=== PATIENT | female | born 1990 | race Caucasian/White ===

== ENCOUNTER 2019-09-17 10:14 | Outpatient (RCR) | payer MEDICAID, SELFPAY | END 2019-10-07 00:01 | LOC: GILAB 10:14 | PROVIDERS: Family Provider Family Medicine; Visit Provider Internal Medicine | DX: K90.9 Intestinal malabsorption, unspecified (principal) | CPT/HCPCS: 96365 ×2; G0463 ×2; J1439 ×2 ==

== ENCOUNTER → 2019-11-20 15:14 | Outpatient (BNVA) | payer MEDICAID, SELFPAY | PROVIDERS: Family Provider Family Medicine; PCP Family Medicine; Visit Provider Obstetrics & Gynecology | DX: R87.612 Low grade squamous intraepithelial lesion on cytologic smear of cervix (LGSIL) (principal); R87.619 Unspecified abnormal cytological findings in specimens from cervix uteri | CPT/HCPCS: 81025 ==

== ENCOUNTER → 2019-11-27 15:21 | Outpatient (BNVA) | payer MEDICAID, SELFPAY | PROVIDERS: Family Provider Family Medicine; PCP Family Medicine; Visit Provider Obstetrics & Gynecology | DX: Z30.9 Encounter for contraceptive management, unspecified (principal); R87.612 Low grade squamous intraepithelial lesion on cytologic smear of cervix (LGSIL) | CPT/HCPCS: 81025 ==

== ENCOUNTER → 2019-11-28 09:16 | Outpatient (BNVA) | payer MEDICAID, SELFPAY | PROVIDERS: Family Provider Family Medicine; PCP Family Medicine; Visit Provider Obstetrics & Gynecology | DX: R87.612 Low grade squamous intraepithelial lesion on cytologic smear of cervix (LGSIL) (principal) | CPT/HCPCS: 88305 ==

== ENCOUNTER → 2020-06-25 08:23 | Outpatient (BNVA) | payer OTHER, SELFPAY | PROVIDERS: PCP Family Medicine; Visit Provider Obstetrics & Gynecology | DX: Z20.828 Contact with and (suspected) exposure to other viral communicable diseases (principal) | CPT/HCPCS: 87635 ==

== ENCOUNTER 2020-06-28 09:00 | Outpatient (CLI) | payer SELFPAY ==
[2020-06-28 10:26] VITALS: BMI 21.4
--- NOTE | 2020-06-28 10:53 | ANES.PREANE2 ---
Pre-Anesthetic Assessment Pre-Anesthetic Assessment: Height/Weight: Height 1.7 m Weight 62.142 kg Preop Diagnosis: Abnormal Pap high-grade lesion, desire long acting reversible contraception Proposed Procedure: Operation Date: 06/30/20 08:00 Proposed Procedures p Cervical Conization 54831 N87.1(Not Applicable) - Rodrick Echevarria MD Familial anesthetic complications: NOne Social: Social History: No alcohol and No tobacco Exam: Pre-Anes Outpt Exam: alert, oriented x 3, clear to auscultation bilaterally and regular rate & rhythm Airway: Cervical ROM: WNL MP: 1 Dentition: Full Anesthetic Plan: ASA status: 1 Anesthesia: General Risk of > 500 ml blood loss (7ml/kg in children): No PFSH Anesthesia PFSH: Family History Mother Diabetes Heart disease Grandmother Heart disease maternal Ovarian cancer maternal great grandmother Family/Other Patient denies medical problems Denies family history of: (hypertension, stroke, hypercholesterolemia, thryoid problems, breast cancer, cervical cancer, uterine cancer, colon cancer, or DVT/PE.) Social History (Updated 06/28/20 @ 08:12 by Milagros Hansen RN) Smoking and tobacco status: never smoked Alcohol intake: never Substance/Drug Use: never Female Reproductive History: Date of last menstrual period: 06/03/20 Data Anesthesia Cardiac Studies: No Data to Display
[2020-06-28 10:54] LABS: Add Urine Microscopic? NO
[2020-06-28 11:04] LABS: Basophils % 0.3 %; Eosinophils % 0.4 %; Hematocrit 40.4 % (37.0-47.0); Hemoglobin 13.4 g/dL (11.5-15.3); Lymphocytes # 2.2 10^3/uL (0.8-4.8); Lymphocytes % 28.4 %; Mean Corpuscular HGB Conc 33.2 g/dL (30.0-36.0); Mean Corpuscular Hemoglobin 30.2 pg (28.0-34.0); Mean Corpuscular Volume 91.2 fL (81-99); Mean Platelet Volume 9.1 fL (7.4-10.4); Monocytes # 0.4 10^3/uL (0.2-0.9); Monocytes % 5.6 %; Neutrophils # 5.13 10^3/uL (1.8-7.7); Neutrophils % 64.8 %; Nucleated Red Blood Cells % 0 %; Platelet Count 198 10^3/cmm (130-400); Red Blood Count 4.43 10^6/uL (4.1-5.3); Red Cell Distribution Width 12.2 % (12.1-15.1); White Blood Count 7.9 10^3/uL (4.0-10.0)
[2020-06-28 11:14] LABS: Anion Gap 12.5 (5-19); Blood Urea Nitrogen 9 mg/dL (6-20); Calcium 8.8 mg/dL (8.5-10.5); Carbon Dioxide 27 mmol/L (22-29); Chloride 103 mmol/L (98-107); Creatinine Clr Calc Pharmacy 164.9307; Glucose 102 mg/dL (65-115); Osmolality Calculated 287 mOsm/kg (285-295); Potassium 3.5 mmol/L (3.5-5.1); Sodium 139 mmol/L (136-145)
[2020-06-28 11:31] LABS: Bilirubin Urine Neg (Negative); Blood Urine Neg (Negative); Glucose Urine UA Norm (Normal); Ketones Urine 1+ (Negative); Leukocyte Esterase Urine Negative (Negative); Nitrate Urine Negative (Negative); Protein Urine Neg (Negative); Urine Appearance Clear (CLEAR); Urine Color Yellow (Yellow); Urobilinogen Urine Norm (Negative)
== END 2020-06-28 09:01 | disposition home or self-care (01) ==
LOC: OPS 05-19 13:04
PROVIDERS: PCP Family Medicine; Visit Provider Obstetrics & Gynecology
DX: N87.1 Moderate cervical dysplasia (principal)
CPT/HCPCS: 80048; 81003; 85025; 86850; 86900

== ENCOUNTER → 2020-07-01 14:38 | Outpatient (BNVA) | payer SELFPAY | PROVIDERS: PCP Family Medicine; Visit Provider Obstetrics & Gynecology | DX: Z32.01 Encounter for pregnancy test, result positive (principal) | CPT/HCPCS: 81025 ==

== ENCOUNTER → 2020-08-03 13:35 | Outpatient (BNVA) | payer SELFPAY | PROVIDERS: PCP Family Medicine; Visit Provider Nurse Practitioner Women's Health | DX: Z34.90 Encounter for supervision of normal pregnancy, unspecified, unspecified trimester (principal) | CPT/HCPCS: 81000 ==

== ENCOUNTER 2020-08-09 20:03 | Emergency (ER) | payer MEDICAID, SELFPAY ==
[2020-08-09 20:08] VITALS: BP 144/96; PULSE 83; RESP 18; TEMP 36.3; O2SAT 98; BMI 21.9
--- NOTE | 2020-08-09 20:50 | US_ITS ---
WS: [id number] ULTRASOUND ABDOMEN LIMITED CLINICAL INFORMATION: right flank pain, 9 weeks IUP COMPARISON: None. FINDINGS: Liver Size: Normal. Craniocaudal length: 15.1 cm. Echogenicity: Normal. Surface nodularity: None. Mass (size and location): None. Bile ducts Intrahepatic ducts: Normal. Common bile duct diameter: 0.3 cm. Gallbladder Normal. Gallstones: None. Gallbladder sludge: None. Gallbladder wall thickening: None. Pericholecystic fluid: None. Sonographic Medley sign: Absent. Pancreas Normal as visualized. Right kidney: Hydronephrosis Hydronephrosis: Mild Size: 10.4 cm x 6.2 cm x 5.9 cm. Abdominal aorta and IVC Visualized portions are normal. Ascites: None. US/US abdomen limited [id number] IMPRESSION: 1. Mild right hydronephrosis. CT renal protocol could be obtained to evaluate for distal obstructing calculus if indicated 2. Liver and gallbladder are normal. 3. No other significant findings.
--- NOTE | 2020-08-09 21:06 | W.ED.FEMALGU ---
HPI - Female Genitourinary General: Chief complaint: Urogenital-Female Stated complaint: 11 week preg/ abd pain Time Seen by Provider: 08/09/20 20:31 History of Present Illness: HPI Narrative: 29-year-old female patient presents to the emergency department with right flank right lower abdominal pain. She reports onset today at 5 PM, sudden onset. She reports nausea. Last menstrual period 06/03/2020, patient approximately 9 weeks, 4 days. She denies vaginal bleeding or vaginal discharge. She reports history of urinary tract infection/pyelonephritis. She denies dysuria. She denies fever or chills. She does report nausea but without vomiting. 3 para 2 living 2 MD elicited complaint: flank pain (rt) Pertinent past history: recurrent UTIs Location of symptoms: RLQ Female Urogenital Radiation: R Flank Quality of pain: cramping Consistency: intermittent Vaginal discharge: none Vaginal bleeding: none Exacerbating factors: none Relieving factors: none Associated symptoms: Reports abdominal pain and nausea; Deny headache(s) Treatment prior to arrival: none Sexual activity: Yes Patient : Yes Possible : at home test positive Date of Last Menstrual Period: 06/03/20 Review of Systems General: Reports: 10 or more systems reviewed and unremarkable except in HPI and below Const: Denies: fever(s), chills or diaphoresis Eyes: Denies: blurry vision or eye redness ENMT: Denies: throat pain, dental pain or disequilibrium Card: Denies: chest pain, palpitations or irregular heart rhythm Resp: Denies: dyspnea, productive cough, non-productive cough or wheezing GI: Reports: abdominal pain and nausea; Denies: vomiting, heartburn or early satiety : Denies: difficulty voiding or dysuria Musc: Denies: neck pain or back pain Skin/Breast: Denies: rash or pruritus Neuro: Denies: headache(s), weakness in extremities or behavioral changes Psych: Denies: anxiety or depression Alfredo/Lymph: Denies: easy bruising [facility] ED PFSH: Medical History (Updated 08/09/20 @ 22:29 by AAMIR Richards) Endometriosis 06/01/2015--> vaginal biopsy--endometriosis noted on pathology. No pertinent past medical history neghx: htn,dm,thyroid,dvt/pe, herpes ---denies partner with herpes Surgical History (Updated 08/03/20 @ 14:12 by Gladys Medina APN, ALEKSANDAR) History of laparoscopy (~2014) operative laparoscopy with upper vaginectomy and excision of rectovaginal endometriosis nodule. Procedure done on 09/20/[address] Manuel Osborn at [facility], rectal nodule removal by Dr. Mitul Vivar. This procedure was done for an area of vaginal endometriosis. Operative report has been reviewed and findings showed a normal uterus with normal tubes and ovaries. Extensive peritoneal endometriosis along the right abdomen. 3.5 cm rectovaginal nodule with deep infiltrating endometriosis. The cul-de-sac was not obliterated. Pathology of all the areas excised were confirmed to be endometriosis. History of local excision of skin lesion (~2004) Previous section Primary low transverse section. Performed by Dr. Gonzalo Rodriguez at [facility] in [place], [place]. Confirmed LTCS with 2 layer closure documented. Status post repeat low transverse section (~09/2019) 09/29/2019- per Dr. Echevarria at [facility] Status post repeat low transverse section (~02/2018) Primary low transverse section. Performed by Dr. Gonzalo Rodriguez at [facility] in [place], [place]. Confirmed LTCS with 2 layer closure documented. 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 Female Reproductive History: Date of last menstrual period: 06/03/20 Physical Exam Const: COMMON NORMALS: no acute distress, patient oriented x3, healthy appearing and alert GENERAL APPEARANCE: comfortable and well hydrated; not combative and not diaphoretic NUTRITIONAL APPEARANCE: thin ORIENTATION/CONSCIOUSNESS: Yes awake, Yes oriented to person, Yes oriented to place and Yes oriented to time HENMT: COMMON NORMALS: normocephalic, atraumatic, Normal external nose present and moist oral mucous membranes HEAD & SCALP: normocephalic and atraumatic NOSE: Normal external nose present Eye: COMMON NORMALS: Equal, round and reactive pupils present and EOMs intact bilaterally GENERAL EYE: appearance normal, both eyes and all related structures PUPIL: Yes Equal, round and reactive pupils present Neck/C-Spine: COMMON NORMALS: full ROM and no lymphadenopathy GENERAL: Yes normal visual inspection and Yes trachea midline CERVICAL SPINE: Yes cervical ROM normal Lymph: LYMPHATIC: no lymphadenopathy noted Chest: COMMONS NORMALS: normal inspection of the chest Resp: COMMON NORMALS: normal respiratory effort and clear to auscultation bilaterally AUSCULTATION: clear to auscultation bilaterally Cardio: COMMON NORMALS: regular rhythm, S1 normal heart sound present, S2 normal heart sound present and Peripheral pulses 2+ throughout RHYTHM: regular rhythm HEART SOUNDS: S1 normal heart sound present and S2 normal heart sound present PERIPHERAL PULSES: Peripheral pulses 2+ throughout GI: COMMON NORMALS: Normal to inspection, nondistended, normoactive bowel sounds present and Soft to palpation INSPECTION: Yes normal to inspection PALPATION: Yes Soft to palpation and Yes Tenderness to palpation present (GI) Details: RLQ : BLADDER/KIDNEY EXAM: Yes CVA tenderness Back/Pelvis: COMMON NORMALS: thoracic and lumbar spine normal to inspection GENERAL BACK: Yes CVA tenderness CVA tenderness: right Extremity: COMMON NORMALS: normal to inspection and capillary refill normal Neuro: COMMON NORMALS: patient oriented x3 and no focal motor deficits SENSORIUM/ORIENTATION: Yes alert, Yes oriented to person, Yes oriented to place and Yes oriented to time Psych: COMMON NORMALS: mental status grossly normal, Normal thought process present and cooperative ACTIVITY/MOTOR BEHAVIOR: Yes appropriate eye contact THOUGHT PROCESS: Normal thought process present Skin: COMMON NORMALS: no rashes or lesions noted and turgor normal GENERAL SKIN EXAM: no rashes or lesions noted and turgor normal Course ED course: 29-year-old female patient presents to the emergency department with right flank pain. Ultrasound revealed intrauterine with heart rate 150s, mild hydronephrosis of the right kidney noted, no stone appreciated but suspected -urinalysis without leukoesterase, nitrites, 1+ bacteria, 0-4 red blood cells noted. Rocephin administered in the ED with 500 cc normal saline, prescription for hydrocodone per Dr. Alvarez with Phenergan provided to the patient along with cefdinir for 10 days. Patient advised to return to the emergency department for nausea vomiting not improved with use of Phenergan, severe pain despite use of hydrocodone, verbalized understanding. She agrees to follow-up with Dr. Bo as an outpatient. Consultations: Consultation #1: Dr Poole, discussed - possible kidney stone - hydrocodone for pain and phenergan for nausea ok for use to control symptoms. Serology and US results discussed - plan to refer to urology, Dr Bo. Time: 22:00 Consultation #2: US Juan discussed, mild hydronephrosis, agrees to see patient in office for follow-up, discussed concern regarding possible kidney stone. Time: 22:15 Vital Signs: Vital signs: Vital Signs Temperature 97.3 F L 08/09/20 20:08 Pulse Rate 88 08/09/20 22:49 Respiratory Rate 18 08/09/20 22:49 Blood Pressure 140/90 08/09/20 22:49 Pulse Oximetry 98 08/09/20 22:49 MDM - Female Lab Data: Labs: Lab Results 08/09/20 08/09/20 08/09/20 Range/Units 21:13 21:13 21:15 WBC 11.0 H (4.0-10.0) 10^3/ uL RBC 4.26 (4.1-5.3) 10^6/u L Hgb 13.0 (11.5-15.3) g/dL Hct 38.6 (37.0-47.0) % MCV 90.6 (81-99) fL MCH 30.5 (28.0-34.0) pg MCHC 33.7 (30.0-36.0) g/dL RDW 12.3 (12.1-15.1) % Plt Count 212 (130-400) 10^3/c mm MPV 9.1 (7.4-10.4) fL Neut % (Auto) 69.9 % Lymph % (Auto) 22.2 % [place] % (Auto) 6.6 % Eos % (Auto) 0.6 % Baso % (Auto) 0.1 % Neut # (Auto) 7.66 (1.8-7.7) 10^3/u L Lymph # (Auto) 2.4 (0.8-4.8) 10^3/u L [place] # (Auto) 0.7 (0.2-0.9) 10^3/u L Eos # (Auto) 0.1 (0.0-0.8) 10^3/u L Baso # (Auto) 0.0 (0.0-0.1) 10^3/u L Nucleated RBC % (a uto) 0 % Nucleated RBCs # 0.0 /100WBC Sodium 132 L (136-145) mmol/L Potassium 3.7 (3.5-5.1) mmol/L Chloride 100 (98-107) mmol/L Carbon Dioxide 22 (22-29) mmol/L Anion Gap 13.7 (5-19) BUN 13 (6-20) mg/dL Creatinine 0.4 L (0.5-0.9) mg/dL GFR Calculation 191.5 H (90-130) mL/min Glucose 96 (65-115) mg/dL Calculated Osmolal ity 274 L (285-295) mOsm/k g Calcium 9.5 (8.5-10.5) mg/dL Total Bilirubin 0.2 (0.15-1.2) mg/dL AST 14 (0-32) U/L ALT 10 (0-33) U/L Alkaline Phosphata se 71 (35-105) IU/L Total Protein 7.0 (6.6-8.7) g/dL Albumin 4.3 (3.5-5.2) g/dL Globulin 2.7 (1.3-4.6) g/dL Ser , Bess i-Qnt 438159.00 mIU/mL Urine Color Yellow (Yellow) Urine Appearance Clear (CLEAR) Urine pH 7.0 (5-7) Ur Specific Gravit y 1.015 (1.005-1.030) Urine Protein Neg (Negative) Urine Glucose (UA) Norm (Normal) Urine Ketones Negative (Negative) Urine Blood 1+ H (Negative) Urine Nitrate Negative (Negative) Urine Bilirubin Neg (Negative) Urine Urobilinogen Norm (Negative) mg/dL Ur Leukocyte Deisi ase Negative (Negative) Urine RBC 5-10 H (0-2) /hpf Urine WBC None (0-5) /hpf Ur Squamous Epith Cells 0-4 H (0-5) /hpf Amorphous Sediment Not Reportable Urine Bacteria Trace (NONE) /hpf Discharge Plan Discharge Patient Disposition: Home Clinical Impression: Renal colic on right side Qualifiers: Weeks of gestation: 9 weeks Qualified Code(s): Z3A.09 - 9 weeks gestation of Condition: Stable Prescriptions: New promethazine 25 mg tablet 25 mg PO Q6H PRN (Reason: nausea) Qty: 14 RF: 0 hydrocodone-acetaminophen 5-325 mg tablet 1 tab PO Q4H PRN (Reason: pain) Qty: 14 RF: 0 cefdinir 300 mg capsule 300 mg PO BID 10 Days Qty: 20 RF: 0 No Action prenat.vits,sergey,[id number] Tablet 1 tab PO DAILY RF: 0 Discharge Orders: Discharge Order (Routine); Ordered 08/09/20 Ordered By: Katelynn Guerrero Referrals: Neha Amaya MD [Primary Care Provider] - Discharge Diet: Usual diet Discharge Activity: Limit activity as instructed Patient Instructions: Renal Colic (ED), Abdominal Pain in (ED) Activity Restrictions/Additional Instructions: Drink plenty of fluids Take antibiotic until all gone, even if feeling better. Social service will contact you with an appointment with Dr. Betzy Duarte urine with every void to intercept possible kidney stone Return to the emergency department if you develop fever, nausea vomiting despite use of Phenergan Avoid fried greasy fatty foods until better Stand Alone Forms: Work/School Release Discharge Date/Time: 08/09/20 22:50 Coding Level of Care Code ED Test Developer for Keilyg Fwd Exam Comprehensive
[2020-08-09] MEDS: ondansetron 4 MG Tablet PO (21:17)
[2020-08-09] MEDS: acetaminophen 500 mg Tablet 1000 MG PO (21:17)
[2020-08-09 21:20] LABS: Basophils % 0.1 %; Eosinophils # 0.1 10^3/uL (0.0-0.8); Eosinophils % 0.6 %; Hematocrit 38.6 % (37.0-47.0); Lymphocytes # 2.4 10^3/uL (0.8-4.8); Lymphocytes % 22.2 %; Mean Corpuscular HGB Conc 33.7 g/dL (30.0-36.0); Mean Corpuscular Hemoglobin 30.5 pg (28.0-34.0); Mean Corpuscular Volume 90.6 fL (81-99); Mean Platelet Volume 9.1 fL (7.4-10.4); Monocytes # 0.7 10^3/uL (0.2-0.9); Monocytes % 6.6 %; Neutrophils # 7.66 10^3/uL (1.8-7.7); Neutrophils % 69.9 %; Nucleated Red Blood Cells % 0 %; Platelet Count 212 10^3/cmm (130-400); Red Blood Count 4.26 10^6/uL (4.1-5.3); Red Cell Distribution Width 12.3 % (12.1-15.1)
[2020-08-09 21:45] LABS: Urine Appearance Clear (CLEAR); Urine Color Yellow (Yellow)
[2020-08-09 21:46] LABS: Add Urine Microscopic? YES; Bacteria Urine TRACE /hpf; Bilirubin Urine Neg (Negative); Blood Urine 1+ (Negative); Glucose Urine UA Norm (Normal); Ketones Urine Negative (Negative); Leukocyte Esterase Urine Negative (Negative); Nitrate Urine Negative (Negative); Protein Urine Neg (Negative); Specific Gravity, Urine 1.015 (1.005-1.030); Squamous Epithelial Cell Urine 0-4 /hpf (0-5); Urobilinogen Urine Norm (Negative)
[2020-08-09 21:47] LABS: Add Urine Culture? No
[2020-08-09 21:53] LABS: Alanine Aminotransferase 10 U/L (0-33); Albumin Level 4.3 g/dL (3.5-5.2); Alkaline Phosphatase 71 IU/L (35-105); Anion Gap 13.7 (5-19); Aspartate Amino Transferase 14 U/L (0-32); Blood Urea Nitrogen 13 mg/dL (6-20); Calcium 9.5 mg/dL (8.5-10.5); Carbon Dioxide 22 mmol/L (22-29); Chloride 100 mmol/L (98-107); Globulin 2.7 g/dL (1.3-4.6); Glomerular Filtration Rate 191.5 mL/min (90-130); Glucose 96 mg/dL (65-115); Osmolality Calculated 274 mOsm/kg (285-295); Potassium 3.7 mmol/L (3.5-5.1); Sodium 132 mmol/L (136-145); Total Bilirubin 0.2 mg/dL (0.15-1.2)
[2020-08-09] MEDS: cefTRIAXone 1,000 MG in sodium chloride 0.9% (plus) 50 ML 100 MG IV (22:18)
[2020-08-09] MEDS: sodium chloride 0.9% 500 ML IV (22:18)
[2020-08-09 22:49] VITALS: BP 140/90; PULSE 88; RESP 18; O2SAT 98
--- NOTE | 2020-08-10 08:49 | DCPLANNER ---
anatomic pathology manager had message to schedule a follow up appointment for patient with Dr. Bo. anatomic pathology manager called the office of Dr. Bo, spoke with Jackie, gave clinic patients information. anatomic pathology manager was told that patients information would be printed and reviewed. Clinic will call patient with appointment information.
--- NOTE | 2020-08-11 10:55 | DCPLANNER ---
Patient has a follow up appointment scheduled for , August 12, 2020 at 11:[address] Bo. Clinic will call patient with appointment information.
--- NOTE | 2020-10-08 12:22 | DCPLANNER ---
Patient had a follow up appointment scheduled for 08.12.[address] Bo - patient did attend appointment.
== END 2020-08-09 22:50 | disposition home or self-care (01) ==
PROVIDERS: Emergency Provider Nurse Practitioner Family; PCP Family Medicine
DX: O26.891 Other specified pregnancy related conditions, first trimester (principal); N23 Unspecified renal colic; Z3A.09 9 weeks gestation of pregnancy
CPT/HCPCS: 12345; 76705; 80053; 81001; 84702; 85025; 96365; 99283; J0696; J7040; Q0162

== ENCOUNTER → 2020-08-12 10:35 | Outpatient (BNVA) | payer MEDICAID, SELFPAY | PROVIDERS: PCP Family Medicine; Visit Provider Urology | DX: N23 Unspecified renal colic (principal); N13.30 Unspecified hydronephrosis | CPT/HCPCS: 81003 ==

== ENCOUNTER → 2020-08-13 13:28 | Outpatient (BNVA) | payer MEDICAID, SELFPAY | PROVIDERS: PCP Family Medicine; Visit Provider Obstetrics & Gynecology | DX: O34.41 Maternal care for other abnormalities of cervix, first trimester (principal); Z3A.10 10 weeks gestation of pregnancy; R87.619 Unspecified abnormal cytological findings in specimens from cervix uteri; Z83.3 Family history of diabetes mellitus | CPT/HCPCS: 80053; 80307; 81000; 83036; 85027; 86592; 86762; 86803; 86850; 86900; 87340; 87806 ==

== ENCOUNTER → 2020-08-24 15:38 | Outpatient (BNVA) | payer MEDICAID, SELFPAY | PROVIDERS: PCP Family Medicine; Visit Provider Nurse Practitioner Family | DX: Z20.828 Contact with and (suspected) exposure to other viral communicable diseases (principal); J06.9 Acute upper respiratory infection, unspecified | CPT/HCPCS: 87635 ==

== ENCOUNTER 2020-08-27 08:21 | Outpatient (CLI) | payer MEDICAID, SELFPAY ==
--- NOTE | 2020-08-27 08:45 | US_ITS ---
WS: [id number] RENAL ULTRASOUND HISTORY: RENAL COLIC COMPARISON: 08/09/2020 TECHNIQUE: 2-D and color Doppler imaging of the kidney submitted. Right kidney: 11.3 cm x 5.7 cm x 5.1 cm. Normal echogenicity with no hydronephrosis or mass. Left kidney: 12.0 cm x 5.7 cm x 5.8 cm. Normal echogenicity with no hydronephrosis or mass. Aorta: Normal. Urinary Bladder: Nondistended. US/US renal BI* [id number] IMPRESSION: Normal renal ultrasound.
== END 2020-08-27 08:22 | disposition home or self-care (01) ==
LOC: RAD 08:23
PROVIDERS: PCP Family Medicine; Visit Provider Urology
DX: N23 Unspecified renal colic (principal)
CPT/HCPCS: 76770; 81003

== ENCOUNTER → 2020-08-29 10:46 | Outpatient (BNVA) | payer MEDICAID, SELFPAY | PROVIDERS: PCP Family Medicine; Visit Provider Nurse Practitioner | DX: N13.30 Unspecified hydronephrosis (principal); N39.0 Urinary tract infection, site not specified | CPT/HCPCS: 81000 ==

== ENCOUNTER → 2020-08-30 09:41 | Outpatient (BNVA) | payer MEDICAID, SELFPAY | PROVIDERS: PCP Family Medicine; Visit Provider Obstetrics & Gynecology | DX: Z34.90 Encounter for supervision of normal pregnancy, unspecified, unspecified trimester (principal) | CPT/HCPCS: 81000; 87625; 88175 ==

== ENCOUNTER → 2020-09-10 13:11 | Outpatient (BNVA) | payer MEDICAID, SELFPAY | PROVIDERS: PCP Family Medicine; Visit Provider Nurse Practitioner Family | DX: N13.30 Unspecified hydronephrosis (principal) | CPT/HCPCS: 81003; 82365 ==

== ENCOUNTER → 2020-09-22 10:44 | Outpatient (BNVA) | payer MEDICAID, SELFPAY | PROVIDERS: PCP Family Medicine; Visit Provider Nurse Practitioner Women's Health | DX: O09.899 Supervision of other high risk pregnancies, unspecified trimester (principal); Z3A.00 Weeks of gestation of pregnancy not specified | CPT/HCPCS: 81000 ==

== ENCOUNTER → 2020-10-22 13:05 | Outpatient (BNVA) | payer MEDICAID, SELFPAY | PROVIDERS: PCP Family Medicine; Visit Provider Obstetrics & Gynecology | DX: Z34.02 Encounter for supervision of normal first pregnancy, second trimester (principal); Z3A.20 20 weeks gestation of pregnancy | CPT/HCPCS: 76805 ==

== ENCOUNTER → 2020-10-28 14:13 | Outpatient (BNVA) | payer BC, MEDICAID, SELFPAY | PROVIDERS: PCP Family Medicine; Visit Provider Obstetrics & Gynecology | DX: R87.612 Low grade squamous intraepithelial lesion on cytologic smear of cervix (LGSIL) (principal) | CPT/HCPCS: 88305 ==

== ENCOUNTER → 2020-11-19 13:27 | Outpatient (BNVA) | payer BC, MEDICAID, SELFPAY | PROVIDERS: PCP Family Medicine; Visit Provider Obstetrics & Gynecology | DX: O09.899 Supervision of other high risk pregnancies, unspecified trimester (principal); O34.219 Maternal care for unspecified type scar from previous cesarean delivery; N87.1 Moderate cervical dysplasia; Z30.2 Encounter for sterilization; N13.30 Unspecified hydronephrosis; N20.9 Urinary calculus, unspecified | CPT/HCPCS: 82950; 84315 ==

== ENCOUNTER → 2020-12-17 13:02 | Outpatient (BNVA) | payer BC, MEDICAID, SELFPAY | PROVIDERS: PCP Family Medicine; Visit Provider Obstetrics & Gynecology | DX: O09.899 Supervision of other high risk pregnancies, unspecified trimester (principal) | CPT/HCPCS: 81000; 85025 ==

== ENCOUNTER 2021-01-28 12:00 | Outpatient (CLI) | payer BC, MEDICAID, SELFPAY ==
[2021-01-28] VITALS (7 sets, daily range): BP systolic 106–113; BP diastolic 63–69; PULSE 71–87; RESP 18; BMI 25.9
[2021-01-28 12:38] LABS: Add Urine Microscopic? NO; Charge for UA Resulting for Rev
[2021-01-28 12:46] LABS: Basophils # 0.1 10^3/uL (0.0-0.1); Basophils % 0.6 %; Eosinophils % 0.3 %; Hematocrit 36.1 % (37.0-47.0); Lymphocytes # 2.3 10^3/uL (0.8-4.8); Lymphocytes % 17.2 %; Mean Corpuscular HGB Conc 33.2 g/dL (30.0-36.0); Mean Corpuscular Hemoglobin 31.2 pg (28.0-34.0); Mean Corpuscular Volume 93.8 fL (81-99); Mean Platelet Volume 8.9 fL (7.4-10.4); Monocytes # 1.1 10^3/uL (0.2-0.9); Monocytes % 8.3 %; Neutrophils # 9.11 10^3/uL (1.8-7.7); Neutrophils % 67.9 %; Nucleated Red Blood Cells % 0 %; Platelet Count 193 10^3/cmm (130-400); Red Blood Count 3.85 10^6/uL (4.1-5.3); Red Cell Distribution Width 12.9 % (12.1-15.1); White Blood Count 13.4 10^3/uL (4.0-10.0)
[2021-01-28 12:58] LABS: Bilirubin Urine Neg (Negative); Blood Urine Neg (Negative); Glucose Urine UA Norm (Normal); Ketones Urine Negative (Negative); Leukocyte Esterase Urine Negative (Negative); Nitrate Urine Negative (Negative); Protein Urine Neg (Negative); Specific Gravity, Urine 1.015 (1.005-1.030); Urine Appearance Clear (CLEAR); Urine Color Yellow (Yellow); Urobilinogen Urine Norm (Negative); pH Urine 5 (5-7)
[2021-01-28 13:09] LABS: Alanine Aminotransferase 9 U/L (0-33); Albumin Level 3.8 g/dL (3.5-5.2); Alkaline Phosphatase 125 IU/L (35-105); Anion Gap 14.8 (5-19); Aspartate Amino Transferase 16 U/L (0-32); Blood Urea Nitrogen 5 mg/dL (6-20); Calcium 8.3 mg/dL (8.5-10.5); Carbon Dioxide 24 mmol/L (22-29); Chloride 101 mmol/L (98-107); Globulin 2.5 g/dL (1.3-4.6); Glomerular Filtration Rate 190.1 mL/min (90-130); Glucose 74 mg/dL (65-115); Osmolality Calculated 278 mOsm/kg (285-295); Potassium 3.8 mmol/L (3.5-5.1); Sodium 136 mmol/L (136-145); Total Bilirubin 0.3 mg/dL (0.15-1.2); Total Protein 6.3 g/dL (6.6-8.7); Uric Acid 3.9 mg/dL (2.4-5.7)
[2021-01-28 13:20] LABS: Slide Review Slide Review Perform
[2021-01-28 13:38] LABS: UPRO/UCREAT Ratio 0.09 mg/mg CR; Urine Creatinine 137 mg/dL (28-217); Urine Protein Random 13 mg/dL
== END 2021-01-28 13:55 | disposition home or self-care (01) ==
LOC: OPOB 12:11 → OBGYN 12:22
PROVIDERS: PCP Family Medicine; Visit Provider Obstetrics & Gynecology
DX: O16.9 Unspecified maternal hypertension, unspecified trimester (principal); Z3A.00 Weeks of gestation of pregnancy not specified; R51.9 Headache, unspecified
CPT/HCPCS: 36415; 59025; 80053; 81003; 82570; 84156; 84550; 85025; 99211

== ENCOUNTER 2021-02-03 11:11 | Emergency (ER) | payer OTHER, SELFPAY ==
[2021-02-03 11:44] VITALS: BP 123/82; PULSE 91; RESP 18; TEMP 36.7; O2SAT 96; BMI 25.9
--- NOTE | 2021-02-03 12:11 | W.ED.GENADLT ---
HPI - General Adult General: Chief complaint: Needlestick/Injury/Exposure Stated complaint: POKED WITH NEEDLSTICK Time Seen by Provider: 02/03/21 11:56 History of Present Illness: HPI narrative: Patient is a 30-year-old female comes to the ED with a needlestick injury. Patient said yesterday morning she was wearing gloves and accidentally nicked herself with use needle on left thumb. She said there was barely any bleeding and she immediately washed and cleaned her hand afterwards. Patient says the used needle did come from a patient that has a history of IV drug use, but does not know any other health history of patient. Patient denies any symptoms. Patient has updated tetanus. Associated symptoms: Deny chest pain, dyspnea, headache(s), nausea, rash, palpitations or vomiting Review of Systems Narrative: Accidental needle stick injury of left thumb Const: Denies: fever(s), chills or fatigue Eyes: Denies: change in vision or eye discomfort ENMT: Denies: throat pain, odynophagia, nasal discharge or nasal congestion Card: Denies: chest pain, palpitations, edema, swelling of feet/ankles, dyspnea on exertion or orthopnea Resp: Denies: dyspnea, productive cough or non-productive cough GI: Denies: abdominal pain, nausea, vomiting, diarrhea, constipation or hematochezia : Denies: flank pain, dysuria or hematuria Musc: Denies: neck pain, back pain or extremity swelling Skin/Breast: Reports: new lesions (Small puncture wound of left thumb.); Denies: rash Neuro: Denies: headache(s), numbness in extremities or weakness in extremities [facility] ED PFSH: Medical History Endometriosis 06/01/2015--> vaginal biopsy--endometriosis noted on pathology. No pertinent past medical history neghx: htn,dm,thyroid,dvt/pe, herpes ---denies partner with herpes Urolithiasis Surgical History History of laparoscopy (~2014) operative laparoscopy with upper vaginectomy and excision of rectovaginal endometriosis nodule. Procedure done on 09/20/[address] Manuel Osborn at [facility], rectal nodule removal by Dr. Mitul Vivar. This procedure was done for an area of vaginal endometriosis. Operative report has been reviewed and findings showed a normal uterus with normal tubes and ovaries. Extensive peritoneal endometriosis along the right abdomen. 3.5 cm rectovaginal nodule with deep infiltrating endometriosis. The cul-de-sac was not obliterated. Pathology of all the areas excised were confirmed to be endometriosis. History of local excision of skin lesion (~2004) Previous section Primary low transverse section. Performed by Dr. Gonzalo Rodriguez at [facility] in [place], [place]. Confirmed LTCS with 2 layer closure documented. Status post repeat low transverse section (~09/2019) 09/29/2019- per Dr. Echevarria at [facility] Status post repeat low transverse section (~02/2018) Primary low transverse section. Performed by Dr. Gonzalo Rodriguez at [facility] in [place], [place]. Confirmed LTCS with 2 layer closure documented. 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 [employer] Female Reproductive History: Date of last menstrual period: 06/03/20 Physical Exam Const: COMMON NORMALS: no acute distress, patient oriented x3, healthy appearing and alert GENERAL APPEARANCE: cooperative and comfortable HENMT: COMMON NORMALS: normocephalic HEAD & SCALP: normocephalic MOUTH: Normal oral and palatal mucosa present THROAT: posterior oropharynx normal and uvula midline Neck/C-Spine: COMMON NORMALS: supple GENERAL: Yes normal visual inspection Resp: COMMON NORMALS: normal respiratory effort, No retractions, No use of accessory muscles and clear to auscultation bilaterally AUSCULTATION: clear to auscultation bilaterally Cardio: COMMON NORMALS: regular rate, regular rhythm, S1 normal heart sound present, S2 normal heart sound present, No gallops present (Cardio), No clicks present (Cardio), No murmurs present (Cardio) and Peripheral pulses 2+ throughout RATE: regular rate RHYTHM: regular rhythm HEART SOUNDS: S1 normal heart sound present and S2 normal heart sound present PERIPHERAL PULSES: Peripheral pulses 2+ throughout GI: COMMON NORMALS: Normal to inspection, nondistended, normoactive bowel sounds present, Soft to palpation, non-tender and no masses PALPATION: Yes Soft to palpation : COMMON NORMALS: Yes no CVA tenderness BLADDER/KIDNEY EXAM: Yes no CVA tenderness Back/Pelvis: COMMON NORMALS: no CVA tenderness Extremity: NARRATIVE EXTREMITY EXAM: Patient has very small and superficial puncture wound to left thumb. No erythema, warmth or drainage seen. No active bleeding. GENERAL: Yes normal exam except as noted Neuro: COMMON NORMALS: patient oriented x3 and moves all extremities SENSORIUM/ORIENTATION: Yes alert Skin: NARRATIVE SKIN EXAM: Patient has very small and superficial puncture wound to left thumb. No erythema, warmth or drainage seen. No active bleeding. GENERAL SKIN EXAM: dry skin Course Vital Signs: Vital signs: Vital Signs Temperature 98.1 F 02/03/21 11:44 Pulse Rate 91 02/03/21 11:44 Respiratory Rate 18 02/03/21 11:44 Blood Pressure 123/82 02/03/21 11:44 Pulse Oximetry 96 02/03/21 11:44 MDM - General Adult MDM Narrative: Medical decision making narrative: Patient is a 30-year-old female comes to the ED with accidental needlestick injury at work. Patient immediately cleaned and bandaged wound after incident. Patient had very small puncture wound to left thumb. No signs of any cellulitis or other significant exam findings. Patient did say that before accidental needle poke she just had drawn blood from a patient with known IV drug use in their history. HIV and hepatitis panel labs performed and pending. Patient has updated tetanus. Patient was discharged and told to contact [facility] to get lab results. I told patient that she can follow-up with her PCP to repeat HIV and hepatitis labs in the next 2 to 4 months. Return to ED precautions given. Worker's Comp. paperwork was completed and signed. Patient understood and agreed with plan. Lab Data: Labs: Lab Results 02/03/21 02/03/21 Range/Units 12:30 12:30 Hepatitis A IgM Ab Non-reactive (Nonreactive) Hep Bs Antigen Non-reactive (Nonreactive) Hep Bs Antibody > 1000.0 H (11.5-1000) Hep B Core Total A b Non-reactive (Nonreactive) Hepatitis C Antibo dy Non-reactive (Nonreactive) HIV 1&2 Ab & HIV 1 Ag Non-reactive (Non-Reactiv) HIV 1&2 Antibody Non-reactive (Non-Reactiv) Discharge Plan Discharge Patient Disposition: Home Clinical Impression: Needlestick injury accident Condition: Stable Prescriptions: No Action prenat.vits,sergey,[id number] Tablet 1 tab PO DAILY RF: 0 promethazine 25 mg tablet 25 mg PO Q6H PRN (Reason: nausea) Qty: 14 RF: 0 Discharge Orders: Discharge ED (Routine); Ordered 02/03/21 Ordered By: Alberto Latham Referrals: Neha Amaya MD [Primary Care Provider] - Discharge Diet: Regular Discharge Activity: Resume usual activity Patient Instructions: Blood/Body Fluid Exposure - Occupational, Needle Stick Injuries (ED), Opioid Safety Activity Restrictions/Additional Instructions: Follow-up with medical provider as directed. Have hepatitis and HIV labs are rechecked in 2 to 4 months. return to the ER or your medical provider if condition worsens. Please read and understand discharge instructions. If any questions, please ask. Coding Level of Care Code ED Auto Body Technician for Bailey Fwd Exam Comprehensive
[2021-02-03 13:27] LABS: Hepatitis A Antibody IgM Non-Reactive (Nonreactive); Hepatitis B Core AB, Total Non-Reactive (Nonreactive); Hepatitis B Surface Antigen Non-Reactive (Nonreactive); Hepatitis C Virus Antibody Non-Reactive (Nonreactive)
[2021-02-03 13:35] LABS: HIV 1 & 2 Antibody Non-Reactive (Non-Reactiv); HIV 1 & 2 Antigen Non-Reactive (Non-Reactiv)
[2021-02-03 14:52] LABS: Hepatitis B Surface AB > 1000.0 (11.5-1000)
== END 2021-02-03 12:30 | disposition home or self-care (01) ==
PROVIDERS: Emergency Provider Physician Assistant; PCP Family Medicine
DX: S61.032A Puncture wound without foreign body of left thumb without damage to nail, initial encounter (principal); W46.1XXA Contact with contaminated hypodermic needle, initial encounter; Y99.0 Civilian activity done for income or pay
CPT/HCPCS: 86705; 86706; 86709; 86803; 87340; 87806; 99282

== ENCOUNTER → 2021-02-11 13:30 | Outpatient (BNVA) | payer BC, SELFPAY | PROVIDERS: PCP Family Medicine; Visit Provider Obstetrics & Gynecology | DX: O09.899 Supervision of other high risk pregnancies, unspecified trimester (principal); Z3A.00 Weeks of gestation of pregnancy not specified | CPT/HCPCS: 81000; 87081 ==

== ENCOUNTER → 2021-02-25 10:39 | Outpatient (BNVA) | payer SELFPAY | PROVIDERS: PCP Family Medicine; Visit Provider Obstetrics & Gynecology | DX: O09.899 Supervision of other high risk pregnancies, unspecified trimester (principal); O34.219 Maternal care for unspecified type scar from previous cesarean delivery; Z3A.00 Weeks of gestation of pregnancy not specified | CPT/HCPCS: 81000 ==

== ENCOUNTER 2021-03-02 20:30 | Inpatient (IN) | payer BC, SELFPAY ==
[2021-03-02] VITALS (9 sets, daily range): BP systolic 101–125; BP diastolic 67–77; PULSE 69–98; RESP 16–20; TEMP 36.2–37; O2SAT 95–98; BMI 26.3
--- NOTE | 2021-03-02 20:35 | PC.NURSE ---
Called placed to Dr. Echevarria and notified of patient arrival, 38.6 prior x 2, SVE of /-3, intact membranes, elizabeth every 6-8 minutes and patient uncomfortable with them, FHTs, and COVID unknown. MD orders to prep patient for and that he is on his way to the hospital for delivery.
--- NOTE | 2021-03-02 20:39 | PC.NURSE ---
This RN called [facility] and notified that was being called for a triage that was a laboring prior , Main OR crew was needed and one manager surgical was needed. supervisor game farm stated she would call the crew in.
--- NOTE | 2021-03-02 20:41 | PC.NURSE ---
Called placed to Haleigh Benjamin CRNA that was called on prior in labor as well as a patient requesting an epidural. Haleigh states that she is on her way and that she will call Dr. Stewart to come in for as well.
--- NOTE | 2021-03-02 20:49 | PC.NURSE ---
Called placed to Dr. Kaur to notify of upcoming in the Main OR 6 due to COVID unknown. states that he was going to come to hospital for delivery.
--- NOTE | 2021-03-02 20:53 | PC.NURSE ---
Dr. Echevarria at bedside
[2021-03-02 21:00] LABS: Hematocrit 35.9 % (37.0-47.0); Mean Corpuscular HGB Conc 33.4 g/dL (30.0-36.0); Mean Corpuscular Hemoglobin 31.2 pg (28.0-34.0); Mean Corpuscular Volume 93.2 fL (81-99); Mean Platelet Volume 9.2 fL (7.4-10.4); Platelet Count 178 10^3/cmm (130-400); Red Blood Count 3.85 10^6/uL (4.1-5.3); Red Cell Distribution Width 13.6 % (12.1-15.1); White Blood Count 11.9 10^3/uL (4.0-10.0)
--- NOTE | 2021-03-02 21:01 | P.ANESASSM_ITS ---
Pre-Anesthetic Assessment Pre-Anesthetic Assessment: Height/Weight: Height 1.7 m Temp Pulse BP 97.2 F L 98 125/77 03/02/21 20:25 03/02/21 20:25 03/02/21 20:25 Preop Diagnosis: Abnormal Pap high-grade lesion, desire long acting reversible contraception Proposed Procedure: repeat cs Familial anesthetic complications: personal hx ponv Was Beta Lilly taken within 24 hours: N/A Was Clonidine taken within 24 hours: N/A Last intake: 1700 chips and Last Intake: 17:00 Social: Social History: No alcohol and No tobacco Exam: Pre-Anes Outpt Exam: alert and oriented x 3 Airway: Submandibular: WNL Cervical ROM: WNL MP: 1 History/ROS: No significant history except as noted and No significant complaints Anesthetic Plan: ASA status: 2E Anesthesia: Anesthesia Evaluation and Regional (specify below) Risk of > 500 ml blood loss (7ml/kg in children): Yes, adequate IV access and fluids planned PFSH Anesthesia PFSH: Medical History Endometriosis 06/01/2015--> vaginal biopsy--endometriosis noted on pathology. No pertinent past medical history neghx: htn,dm,thyroid,dvt/pe, herpes ---denies partner with herpes Urolithiasis Surgical History History of laparoscopy (~2014) operative laparoscopy with upper vaginectomy and excision of rectovaginal endometriosis nodule. Procedure done on 09/20/[address] Manuel Osborn at [facility], rectal nodule removal by Dr. Mitul Vivar. This procedure was done for an area of vaginal endometriosis. Operative report has been reviewed and findings showed a normal uterus with normal tubes and ovaries. Extensive peritoneal endometriosis along the right abdomen. 3.5 cm rectovaginal nodule with deep infiltrating endometriosis. The cul-de-sac was not obliterated. Pathology of all the areas excised were confirmed to be endometriosis. History of local excision of skin lesion (~2004) Previous section Primary low transverse section. Performed by Dr. Gonzalo Rodriguez at [facility] in [place], [place]. Confirmed LTCS with 2 layer closure documented. Status post repeat low transverse section (~09/2019) 09/29/2019- per Dr. Echevarria at [facility] Status post repeat low transverse section (~02/2018) Primary low transverse section. Performed by Dr. Gonzalo Rodriguez at [facility] in [place], [place]. Confirmed LTCS with 2 layer closure documented. 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
[2021-03-02] MEDS: metoclopramide 5 mg/mL SDV 2 mL 10 MG IVP (21:07)
[2021-03-02] MEDS: famotidine 20 mg/2 mL INJ IVP (21:07)
[2021-03-02] MEDS: citric acid-sodium citrate 30 mL UDC PO (21:07)
[2021-03-02 21:56] LABS: Alanine Aminotransferase 9 U/L (0-33); Albumin Level 3.7 g/dL (3.5-5.2); Alkaline Phosphatase 202 IU/L (35-105); Blood Urea Nitrogen 6 mg/dL (6-20); Calcium 8.4 mg/dL (8.5-10.5); Carbon Dioxide 21 mmol/L (22-29); Chloride 105 mmol/L (98-107); Globulin 2.5 g/dL (1.3-4.6); Glomerular Filtration Rate 264.9 mL/min (90-130); Glucose 83 mg/dL (65-115); Osmolality Calculated 281 mOsm/kg (285-295); Sodium 137 mmol/L (136-145); Total Bilirubin 0.2 mg/dL (0.15-1.2); Total Protein 6.2 g/dL (6.6-8.7)
[2021-03-02 21:58] LABS: Anion Gap 15.4 (5-19); Aspartate Amino Transferase 20 U/L (0-32); Potassium 4.4 mmol/L (3.5-5.1)
--- NOTE | 2021-03-02 22:38 | PM.OP ---
Operative Report Date of procedure: March 02, 2021 Pre-op Diagnosis: Term , previous delivery Post-op Diagnosis: Term delivered Procedure Done: Repeat delivery Pathology: none sent Surgeon: Rodrick Echevarria MD Anesthesia: Other (spinal) Estimated blood loss (mL): 500 IV fluids (mL): 1,000 Urine output (mL): 100 Complications: None Condition: stable Disposition: PACU Brief History: 30-year-old female with an estimated stational age at 39 weeks with 2 previous delivery Procedure: After assuring informed consent, the patient was taken to the operating room and anesthesia was initiated. She was placed in the dorsal supine position with a left lateral tilt. The abdomen was prepped and draped in the usual sterile manner. A time-out procedure was performed. A Pfannenstiel skin incision was made with the scalpel and carried through to the underlying layer of fascia with the Bovie. The fascia was nicked in the midline and the incision extended laterally with the Duron scissors. The superior aspect of the fascial incision was then grasped with Romina clamps and elevated and the underlying rectus muscle dissected off bluntly and sharp with duron scissors dense adhesions. Attention was then turned to the inferior aspect of the incision which, in similar fashion, was grasped and tented up with Romina clamps and the rectus muscle dissected bluntly. The rectus muscles were then in the midline and the peritoneum identified, tented up and entered sharply with Metzenbaum scissors. The peritoneal incision was then extended superiorly and inferiorly with good visualization of the bladder. The Wes O retractor was then inserted and the vesicouterine peritoneum identified, grasped with pickups and entered sharply with Metzenbaum scissors. This incision was then extended laterally and the bladder flap created digitally. The uterus incised in a low transverse fashion with the scalpel. The uterine incision was then extended with the bandage scissors. The was then delivered in the cephalic presentation atraumatically. The nose and the mouth were suctioned with bulb and the cord clamped and cut. The cord was normal and had three vessels. Amniotic fluid was clear. The placenta was then removed manually and the uterus exteriorized and cleared of all clots and debris. The uterine incision was repaired with 0 Vicryl in a running-locked fashion. A second layer of the same suture was used to obtain excellent hemostasis. The gutters were cleared of all clots. The uterus was then returned to the abdomen. The rectus muscles were approximated with 3-0 chromic gut. The fascia was reapproximated with 0 Vicryl in an interrupted running fashion. The skin was closed with Insorb?s subcuticular absorbable bowen. Then Exparel was infiltrated around the incision for pain management. The patient tolerated the procedure well. The sponge, lap and needle counts were correct times three. The patient was given Ancef 2 gm intravenously immediately after delivery of the .
--- NOTE | 2021-03-02 22:58 | SUR.PHASEI ---
224 PT AWAKE ALERT SPINAL AT T8 PER PT STATEMENT OF NORMAL SENSATION TO TOUCH, PT UNABLE TO MOVE BILAT FEET, HOB FLAT 2299 PT REMAINS ALERT TAKING OCC ICE CHIPS HOB SLOWLY UP TO 30 DEGREES VSS ABD SOFT DESIRAE PAD D/I KENT TO DD WITH YELLOW URINE. DRESSING TO LOWER ABD D/I.
--- NOTE | 2021-03-02 23:00 | ANE.PACU2 ---
Inpatient post-anesthesia follow up: Airway intact: Yes Vital signs: Temperature 98.2 F Pulse Rate 67 Respiratory Rate 18 Blood Pressure 95/58 Pulse Oximetry 96 Oxygen Delivery Me thod Room Air Oxygen Flow Rate Fraction of Inspir ed Oxygen Hydration adequate: Yes Nausea and vomiting: No Pain level: 1 Mental status: Baseline
--- NOTE | 2021-03-02 23:02 | SUR.PHASEI ---
PT IV INFUSING NS WITH 20 UNITS OF PITOCIN AT APROX 100ML/HR.
[2021-03-03] VITALS (16 sets, daily range): BP systolic 92–116; BP diastolic 51–79; PULSE 66–96; RESP 16–18; TEMP 36.6–36.9; O2SAT 92–98
[2021-03-03] MEDS: ketorolac 30 mg/mL INJ IVP ×2 (01:13→07:53)
[2021-03-03] MEDS: dextrose 5%-lactated ringers 1,000 ML 125 ML IV ×2 (01:14→09:41)
--- NOTE | 2021-03-03 03:48 | PC.NURSE ---
RT called at [phone] to bring IS to pt. conventional mortgage underwriter taked with Jamaal from RT.
[2021-03-03] MEDS: sodium chloride 0.9% 500 ML 999 ML IV ×2 (05:36→07:53)
[2021-03-03] MEDS: ondansetron 2 mg/ML SDV 2 mL 4 MG IVP (05:36)
--- NOTE | 2021-03-03 06:28 | PC.NURSE ---
pt ambulated from bed to bathroom for foreign care. pt then walks from bathroom to sit up in chair.
[2021-03-03] MEDS: prenatal vitamin Capsule 1 CAP PO (07:54)
--- NOTE | 2021-03-03 07:55 | P.PN_ITS ---
Subjective Subjective: Interval history: Mrs. Cantor 22-year-old female with an estimated gestational age at 39 weeks with 2 previous deliveries. She was scheduled for repeat delivery on March 10 but came to labor and delivery in active labor. Refers doing well, minimal pain. Vitals/I&O/Wt Last Vital Signs Temp 98.2 F 03/03/21 04:10 Pulse 67 03/03/21 05:10 Resp 18 03/03/21 05:10 BP 95/58 03/03/21 05:10 Pulse Ox 96 03/03/21 05:10 03/02/21 03/03/21 03/03/21 22:59 06:59 14:59 Intake Total 1150 / 1150 1145.833 / 2295.833 Output Total 650 / 650 315 / 965 Balance 500 / 500 830.833 / 1330.833 Weight last 48 hrs Weight 76.204 kg Physical Exam Narrative: EXAM NARRATIVE: GA: Alert and oriented ?3. HEENT: WNL. Heart: Regular rate and rhythm. Lungs: Clear to auscultation bilaterally. Breasts: engorged Nipples - skin intact Abdomen: Bowel sounds present, minimal tenderness, incision clean and dry, no redness, pain or edema. Uterine fundus below umbilicus. No Fundal Tenderness. ADVANCED DEVELOPER: Perineum: normal lochia. Extremities: No edema, no cyanosis, no calves pain. Urinary Catheter Management^: Soares Latex: Cath Placed During This Visit: yes Urinary Catheter Date of Insertion: 03/02/21 Urinary Catheter Time of Insertion: 21:30 Data : 03/02/21 20:43 03/02/21 20:46 A&P Assessment and plan (1) Term delivered: Mrs. Cantor is status post repeat delivery postoperative day 1. She is afebrile and hemodynamically stable. Tolerating diet well. Ambulating without difficulty. Pain under control with medication. Continue postop observation. Plan to discharge home tomorrow Status: Acute Attestations Medical Necessity Statement*: In my professional opinion per admitting diagnosis Coding Level of Care Code Acute Head Of Academic Technology for Chg Fwd Diagnoses Term delivered O80
[2021-03-03] MEDS: FUROsemide 10 mg/mL SDV 2mL 20 MG IVP (09:40)
[2021-03-03] MEDS: docusate sodium 100 mg Capsule PO ×2 (09:52→17:27)
[2021-03-03 10:56] LABS: Hematocrit 32.9 % (37.0-47.0); Hemoglobin 10.8 g/dL (11.5-15.3); Mean Corpuscular HGB Conc 32.8 g/dL (30.0-36.0); Mean Corpuscular Hemoglobin 30.8 pg (28.0-34.0); Mean Corpuscular Volume 93.7 fL (81-99); Platelet Count 147 10^3/cmm (130-400); Red Blood Count 3.51 10^6/uL (4.1-5.3); Red Cell Distribution Width 13.7 % (12.1-15.1); White Blood Count 13.1 10^3/uL (4.0-10.0)
[2021-03-03] MEDS: ibuprofen 800 mg tablet PO ×2 (17:27→20:59)
[2021-03-04] MEDS: HYDROcodone-acetaminophen 5-325 mg Tablet PO (00:17)
[2021-03-04] MEDS: ibuprofen 800 mg tablet PO (09:20)
[2021-03-04] MEDS: prenatal vitamin Capsule 1 CAP PO (09:20)
[2021-03-04] MEDS: docusate sodium 100 mg Capsule PO (09:20)
[2021-03-04] MEDS: ferrous sulfate EC 325 mg Tablet PO (09:20)
[2021-03-04 09:22] VITALS: BP 112/73; PULSE 89; RESP 16; TEMP 36.6; O2SAT 97
--- NOTE | 2021-03-04 10:58 | PM.DCS ---
Discharge Providers Date of Admission: 03/02/21 20:30 Date of Discharge: March 04, 2021 Attending Provider at Admission: Rodrick Echevarria MD Attending Provider at Discharge: Rodrick Echevarria MD Primary Care Provider: Neha Amaya MD Diagnoses at Discharge Discharge Diagnosis (1) Term delivered: Status: Acute Reason for Visit Reason for Visit: Contractions Hospital Course Hospital Course The patient was admitted for repeat . She did well and on postop day #2, she was ready for discharge. Physical Exam Const: COMMON NORMALS: no acute distress, average body habitus, patient oriented x3 and no limitations GENERAL APPEARANCE: cooperative, comfortable, well kempt and well developed ORIENTATION/CONSCIOUSNESS: Yes awake, Yes oriented to person and Yes oriented to place Resp: COMMON NORMALS: normal respiratory effort EFFORT & INSPECTION: Yes able to speak in complete sentences GI: COMMON NORMALS: Soft to palpation and non-tender PALPATION: Yes Soft to palpation Extremity: COMMON NORMALS: no clubbing, cyanosis or edema Neuro: COMMON NORMALS: patient oriented x3 SENSORIUM/ORIENTATION: Yes oriented to person and Yes oriented to place Psych: APPEARANCE: Yes well kempt Urinary Catheter Management^: Soares Latex: Cath Placed During This Visit: yes, but has since been removed by the nurse Reason for Continuing Indwelling Catheter: Decision to DC Catheter Urinary Catheter Date of Insertion: 03/02/21 Urinary Catheter Time of Insertion: 21:30 Date Urinary Catheter Removed: 03/03/21 Time Urinary Catheter Discontinued: 13:50 Discharge Data Vitals: Last Vital Signs Temp 97.9 F 03/04/21 09:22 Pulse 89 03/04/21 09:22 Resp 16 03/04/21 09:22 BP 112/73 03/04/21 09:22 Pulse Ox 97 03/04/21 09:22 Discharge Plan Discharge Patient Disposition: Home Condition: Stable Prescriptions: New hydrocodone-acetaminophen 5-325 mg Tablet 1 tab PO Q4H PRN (Reason: Moderate To Severe Pain) Qty: 30 RF: 0 Continued prenat.vits,sergey,gfr-ebgk-sljzt Tablet 1 tab PO DAILY RF: 0 promethazine 25 mg tablet 25 mg PO Q6H PRN (Reason: nausea) Qty: 14 RF: 0 Discharge Orders: Discharge Order (Routine); Ordered 03/04/21 Ordered By: Elba Lopez Patient Instructions: Pre-eclampsia and Eclampsia (DC), Bleeding (DC), OB WHC, OB Discharge Report, OB Food/Drug Interaction Guide, Opioid Safety, OB Home Care, OB Proud Parent Packet, Depression Discharge Attestations Time Spent in Discharge Care*: less than 30 min Quality Metrics Clinical Quality Measures During this hospital stay, did patient experience: None Coding Level of Care Code Acute Chg FW DC note Exam Expanded Problem Focused Diagnoses Term delivered O80
[2021-03-04 13:00] VITALS: BP 112/72; PULSE 89; RESP 16; TEMP 36.7; O2SAT 97
== END 2021-03-04 13:10 | disposition home or self-care (01) | DRG 787 ==
LOC: OPOB 22:14 → OBGYN 22:14
PROVIDERS: Admitting Provider Obstetrics & Gynecology; PCP Family Medicine; Visit Provider Obstetrics & Gynecology
PROC: 10D00Z1 Extraction of Products of Conception, Low, Open Approach (ICD-10-PCS; CPT 59514; principal; 2021-03-02 21:10)
DX: O34.219 Maternal care for unspecified type scar from previous cesarean delivery (principal); N13.2 Hydronephrosis with renal and ureteral calculous obstruction; Z3A.39 39 weeks gestation of pregnancy; Z37.0 Single live birth; O99.892 Other specified diseases and conditions complicating childbirth; N87.9 Dysplasia of cervix uteri, unspecified; O75.89 Other specified complications of labor and delivery
CPT/HCPCS: 36415; 51702; 59025; 59409; 80053; 85027; 86900; 98960; 99211; C9290; J0690; J1885; J1940; J2274; J2370; J2405; J2765; J3490; J7040

== ENCOUNTER → 2021-04-18 10:58 | Outpatient (BNVA) | payer BC, SELFPAY | PROVIDERS: PCP Family Medicine; Visit Provider Obstetrics & Gynecology | DX: Z30.9 Encounter for contraceptive management, unspecified (principal) | CPT/HCPCS: 81025 ==

== ENCOUNTER → 2021-08-23 09:29 | Outpatient (BNVA) | payer BC, SELFPAY | PROVIDERS: PCP Family Medicine; Visit Provider Obstetrics & Gynecology | DX: R87.610 Atypical squamous cells of undetermined significance on cytologic smear of cervix (ASC-US) (principal); N63.32 Unspecified lump in axillary tail of the left breast | CPT/HCPCS: 87624 ==

== ENCOUNTER → 2021-09-20 13:10 | Outpatient (BNVA) | payer BC, SELFPAY | PROVIDERS: PCP Family Medicine; Visit Provider Nurse Practitioner Family | DX: Z20.822 Contact with and (suspected) exposure to COVID-19 (principal) | CPT/HCPCS: 87426; 87635 ==

== ENCOUNTER 2021-11-15 12:11 | Outpatient (CLI) | payer BC, MEDICAID, SELFPAY ==
[2021-11-15 12:39] LABS: D Dimer 0.37 ug/mIFEU (0-0.59)
== END 2021-11-15 12:12 | disposition home or self-care (01) ==
LOC: LAB 12:16
PROVIDERS: PCP Family Medicine; Visit Provider Nurse Practitioner
DX: R06.02 Shortness of breath (principal)
CPT/HCPCS: 85378

== ENCOUNTER 2022-01-25 09:16 | Outpatient (CLI) | payer BC, MEDICAID, SELFPAY ==
--- NOTE | 2022-01-25 09:15 | US_ITS ---
WS: [id number] ULTRASOUND SOFT TISSUES LEFT upper abdomen. HISTORY: R22.2 - Localized swelling, mass and lump, trunk COMPARISON: None available. TECHNIQUE: 2-D and color Doppler imaging is submitted. Area of concern is just beneath the LEFT breast in the LEFT upper abdomen. Ultrasound is directed to this area of concern. There is a hypoechoic very superficial nodule without increased vascularity wilber suring 5 x 3 x 5 mm. Very close to the skin surface. No adjacent ducts. No increased vascularity. US/US soft tissue/extremity 86309 IMPRESSION: Superficial subcutaneous chest nodule just beneath the LEFT breast. Most typica l for a sebaceous cyst.
== END 2022-01-25 09:17 | disposition home or self-care (01) ==
LOC: RAD 09:17
PROVIDERS: PCP Family Medicine; Visit Provider Obstetrics & Gynecology
DX: R22.2 Localized swelling, mass and lump, trunk (principal)
CPT/HCPCS: 76882

== ENCOUNTER → 2022-02-07 08:46 | Outpatient (BNVA) | payer BC, MEDICAID, SELFPAY | PROVIDERS: PCP Family Medicine; Referring Provider Obstetrics & Gynecology; Visit Provider Surgery | DX: R22.2 Localized swelling, mass and lump, trunk (principal) | CPT/HCPCS: 99204 ==

== ENCOUNTER 2022-03-02 06:09 | Day surgery (SDC) | payer BC, MEDICAID, SELFPAY ==
[2022-02-15 14:56] VITALS: BMI 22.7
[2022-03-02] VITALS (7 sets, daily range): BP systolic 127–149; BP diastolic 77–95; PULSE 60–94; RESP 16–18; TEMP 36.1–36.6; O2SAT 98–100
[2022-03-02 06:24] LABS: OR HCG Qualitative Urine Negative (Negative)
--- NOTE | 2022-03-02 06:35 | P.ANESASSM_ITS ---
Pre-Anesthetic Assessment Height/Weight: Height 1.7 m Weight 65.771 kg Temp Pulse Resp BP Pulse Ox 97.8 F 66 16 149/85 99 03/02/22 06:31 03/02/22 06:31 03/02/22 06:31 03/02/22 06:31 03/02/22 06:31 Preop Diagnosis: Left chest wall mass Operation Date: 03/02/22 07:00 Proposed Procedures p Excision of left chest mass 68348/r22.2(Left) - Carl Briseno MD Familial anesthetic complications: None Was Beta Lilly taken within 24 hours: N/A Was Clonidine taken within 24 hours: N/A Last intake: Intake Last Liquid Date 03/01/22 Last Liquid Time 22:30 Last Solid Date 03/01/22 Last Solid Time 19:30 Social No alcohol and No tobacco Exam alert, oriented x 3, clear to auscultation bilaterally and regular rate & rhythm Airway Mallampati: Class I Dentition: full Anesthetic Plan ASA status: 1 Anesthesia: MAC Risk of > 500 ml blood loss (7ml/kg in children): No Medications/Allergies Home Medications Medication Instructions Recorded Confirmed Last Taken Type prenat.vits,sergey,kbo-mige-tdvwl 1 tab PO DAILY 08/03/20 03/02/22 03/01/22 History norgestimate 0.25 mg-ethinyl 1 tab PO DAILY #84 tab 10/11/21 03/02/22 03/01/22 Rx estradiol 35 mcg tablet (Sprintec (28)) Allergies Allergy/AdvReac Type Severity Reaction Status Date / Time No Known Allergies Allergy Verified 03/01/22 08:19 [facility] Anesthesia Medical History Endometriosis 06/01/2015--> vaginal biopsy--endometriosis noted on pathology. Urolithiasis Surgical History History of laparoscopy (~2014) operative laparoscopy with upper vaginectomy and excision of rectovaginal endometriosis nodule. Procedure done on 09/20/[address] Manuel Osborn at [facility], rectal nodule removal by Dr. Mitul Vivar. This procedure was done for an area of vaginal endometriosis. Operative report has been reviewed and findings showed a normal uterus with normal tubes and ovaries. Extensive peritoneal endometriosis along the right abdomen. 3.5 cm rectovaginal nodule with deep infiltrating endometriosis. The cul-de-sac was not obliterated. Pathology of all the areas excised were confirmed to be endometriosis. History of local excision of skin lesion (~2004) Previous section Primary low transverse section. Performed by Dr. Gonzalo Rodriguez at [facility] in [place], [place]. Confirmed LTCS with 2 layer closure documented. S/P section 03/02/2021- repeat delivery, performed by Dr. Echevarria at [facility] Status post repeat low transverse section (~09/2019) 09/29/2019- per Dr. Echevarria at [facility] Status post repeat low transverse section (~02/2018) Primary low transverse section. Performed by Dr. Gonzalo Rodriguez at [facility] in [place], [place]. Confirmed LTCS with 2 layer closure documented. 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
--- NOTE | 2022-03-02 06:54 | W.PM.OPSFHP ---
Same Day Surgery H&P Indication for Procedure/HPI DATE OF PROCEDURE: March 02, 2022 CHIEF COMPLAINT/INDICATIONFOR SURGICAL PROCEDURE: excision abdominal wall mass PREOP DIAGNOSIS: Left chest wall mass PLANNED PROCEDURE: Operation Date: 03/02/22 07:00 Proposed Procedures p Excision of left chest mass 00262/r22.2(Left) - Carl Briseno MD Medications/Allergies* Home Medications Medication Instructions Recorded Confirmed Type prenat.vits,sergey,xhi-tpmi-fhvgk 1 tab PO DAILY 08/03/20 03/02/22 History Allergies/Adverse Reactions Allergy/AdvReac Type Severity Reaction Status Date / Time No Known Allergies Allergy Verified 03/01/22 08:19 Pertinent History/Comorbid Conditions* Medical History (Updated 02/07/22 @ 09:08 by Carl Briseno MD) Endometriosis 06/01/2015--> vaginal biopsy--endometriosis noted on pathology. Urolithiasis Surgical History (Updated 04/18/21 @ 13:11 by Rodrick Echevarria MD) History of laparoscopy (~2014) operative laparoscopy with upper vaginectomy and excision of rectovaginal endometriosis nodule. Procedure done on 09/20/[address] Manuel Osborn at [facility], rectal nodule removal by Dr. Mitul Vivar. This procedure was done for an area of vaginal endometriosis. Operative report has been reviewed and findings showed a normal uterus with normal tubes and ovaries. Extensive peritoneal endometriosis along the right abdomen. 3.5 cm rectovaginal nodule with deep infiltrating endometriosis. The cul-de-sac was not obliterated. Pathology of all the areas excised were confirmed to be endometriosis. History of local excision of skin lesion (~2004) Previous section Primary low transverse section. Performed by Dr. Gonzalo Rodriguez at [facility] in [place], [place]. Confirmed LTCS with 2 layer closure documented. S/P section 03/02/2021- repeat delivery, performed by Dr. Echevarria at [facility] Status post repeat low transverse section (~09/2019) 09/29/2019- per Dr. Echevarria at [facility] Status post repeat low transverse section (~02/2018) Primary low transverse section. Performed by Dr. Gonzalo Rodriguez at [facility] in [place], [place]. Confirmed LTCS with 2 layer closure documented. 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
[2022-03-02] MEDS: sodium chloride 0.9% 1,000 ML 30 ML IV (07:00)
[2022-03-02] MEDS: lidocaine 2% INJ 20 mL 10 ML INJECTION (07:12)
--- NOTE | 2022-03-02 07:35 | PM.OP ---
Operative Report Date of procedure: March 02, 2022 Pre-op diagnosis: Left chest wall mass Post-op diagnosis: same Procedure done: Excision of subcutaneous left chest wall mass Specimens removed/disposition: Left chest wall mass Surgeon: Carl Briseno Anesthesia: General Condition: stable Disposition: PACU Procedure: The patient was taken to the operating room and placed under general anesthesia after IV antibiotic had been administered. The left chest over the palpable mass which was marked preoperatively was prepped and draped in a sterile manner. 20 cc of 2% lidocaine with 0.25% Marcaine was infiltrated around the palpable mass. Using a 15 blade, a 3 cm transverse incision was made, subcutaneous tissue was divided using electrocautery and the subcutaneous mass was dissected free from the surrounding subcutaneous tissue and underlying muscular fascia, it measured about 5 x 4 cm. The specimen was sent to pathology. Wound was irrigated with saline, hemostasis ensured and subcutaneous tissues were approximated using interrupted 3-0 Vicryl suture and skin was closed using running subcuticular 4-0 Monocryl suture and Dermabond. The patient was extubated and transferred to recovery room in stable condition.
--- NOTE | 2022-03-02 14:33 | ANE.PACU2 ---
Inpatient post-anesthesia follow up: Airway intact: Yes Vital signs: Temperature 97.2 F Pulse Rate 60 Respiratory Rate 18 Blood Pressure 137/77 Pulse Oximetry 100 Oxygen Delivery Me thod Room Air Oxygen Flow Rate 8 Fraction of Inspir ed Oxygen Hydration adequate: Yes Nausea and vomiting: No Pain level: 1 Mental status: Baseline
== END 2022-03-02 08:36 | disposition home or self-care (01) ==
PROVIDERS: Anesthesiology; PCP Family Medicine; Visit Provider Surgery
PROC: (CPT 11406; principal; 2022-03-02 07:00)
DX: D17.1 Benign lipomatous neoplasm of skin and subcutaneous tissue of trunk (principal)
CPT/HCPCS: 11406; 12032; 84703; 88307; J0690; J1100; J2250; J2405; J2704; J3010; J3490; J7030

== ENCOUNTER → 2022-03-17 08:05 | Outpatient (BNVA) | payer BC, MEDICAID, SELFPAY | PROVIDERS: PCP Family Medicine; Visit Provider Surgery | DX: Z98.890 Other specified postprocedural states (principal) | CPT/HCPCS: 99213 ==

== ENCOUNTER → 2022-08-28 13:48 | Outpatient (BNVA) | payer BC, MEDICAID, SELFPAY | PROVIDERS: PCP Family Medicine; Visit Provider Obstetrics & Gynecology | DX: Z12.4 Encounter for screening for malignant neoplasm of cervix (principal); N94.6 Dysmenorrhea, unspecified; R87.610 Atypical squamous cells of undetermined significance on cytologic smear of cervix (ASC-US); G89.29 Other chronic pain; R10.2 Pelvic and perineal pain; N80.9 Endometriosis, unspecified | CPT/HCPCS: 87624 ==

== ENCOUNTER → 2023-01-02 13:00 | Outpatient (BNVA) | payer BC, MEDICAID, SELFPAY | PROVIDERS: PCP Family Medicine; Visit Provider Obstetrics & Gynecology | DX: N39.0 Urinary tract infection, site not specified (principal); R87.610 Atypical squamous cells of undetermined significance on cytologic smear of cervix (ASC-US) | CPT/HCPCS: 81025; 84315; 88305; 88342 ==

== ENCOUNTER → 2023-01-20 12:03 | Outpatient (BNVA) | payer BC, MEDICAID, SELFPAY | PROVIDERS: PCP Family Medicine; Visit Provider Family Medicine | DX: R39.9 Unspecified symptoms and signs involving the genitourinary system (principal); N39.0 Urinary tract infection, site not specified | CPT/HCPCS: 81000 ==

== ENCOUNTER 2023-01-31 08:26 | Day surgery (SDC) | payer BC, MEDICAID, SELFPAY ==
[2023-01-30 08:16] VITALS: BMI 22.7
[2023-01-30 08:43] LABS: OR HCG Qualitative Urine Negative (Negative)
[2023-01-30 08:57] LABS: Add Urine Microscopic? NO; Charge for UA Resulting for Rev
[2023-01-30 09:02] LABS: Basophils % 0.3 %; Eosinophils # 0.1 10^3/uL (0.0-0.8); Eosinophils % 0.7 %; Hematocrit 40.4 % (37.0-47.0); Hemoglobin 12.7 g/dL (11.5-15.3); Lymphocytes # 1.9 10^3/uL (0.8-4.8); Lymphocytes % 26.9 %; Mean Corpuscular HGB Conc 31.4 g/dL (30.0-36.0); Mean Corpuscular Hemoglobin 27.6 pg (28.0-34.0); Mean Corpuscular Volume 87.8 fl (81-99); Mean Platelet Volume 9.1 fL (7.4-10.4); Monocytes # 0.6 10^3/uL (0.2-0.9); Monocytes % 7.9 %; Neutrophils # 4.59 10^3/uL (1.8-7.7); Neutrophils % 63.6 %; Nucleated Red Blood Cells % 0 %; Platelet Count 267 10^3/cmm (130-400); Red Cell Distribution Width 14.1 % (12.1-15.1); White Blood Count 7.2 10^3/uL (4.0-10.0)
[2023-01-30 09:11] LABS: Bilirubin Urine Neg (Negative); Blood Urine Neg (Negative); Glucose Urine UA Norm (Normal); Ketones Urine Negative (Negative); Leukocyte Esterase Urine Negative (Negative); Nitrate Urine Negative (Negative); Protein Urine Neg (Negative); Specific Gravity, Urine 1.015 (1.005-1.030); Urine Appearance Clear (CLEAR); Urine Color Yellow (Yellow); Urobilinogen Urine Norm (Negative); pH Urine 7 (5-7)
[2023-01-30 09:22] LABS: Alanine Aminotransferase 13 U/L (0-33); Albumin Level 4.7 g/dL (3.5-5.2); Alkaline Phosphatase 90 U/L (35-105); Anion Gap 13.3 (5-19); Aspartate Amino Transferase 23 U/L (0-32); Blood Urea Nitrogen 11 mg/dL (6-20); Calcium 9.3 mg/dL (8.5-10.5); Carbon Dioxide 26 mmol/L (22-29); Chloride 105 mmol/L (98-107); Globulin 2.8 g/dL (1.3-4.6); Glomerular Filtration Rate 144.9 mL/min (90-130); Glucose 81 mg/dL (65-115); Osmolality Calculated 288 mOsm/kg (285-295); Potassium 4.3 mmol/L (3.5-5.1); Sodium 140 mmol/L (136-145); Total Bilirubin 0.3 mg/dL (0.15-1.2); Total Protein 7.5 g/dL (6.6-8.7)
--- NOTE | 2023-01-30 13:26 | ANES.PREANE2 ---
Pre-Anesthetic Assessment Height/Weight: Height 1.7 m Weight 65.771 kg Preop Diagnosis: RYAN-2, ASC-H Operation Date: 01/31/23 08:30 Proposed Procedures p Cervical cone biopsy 17144,N87.1(Not Applicable) - Rodrick Echevarria MD Familial anesthetic complications: none Was Beta Lilly taken within 24 hours: N/A Was Clonidine taken within 24 hours: N/A Social No alcohol and No tobacco Exam alert, oriented x 3, clear to auscultation bilaterally and regular rate & rhythm Airway Submandibular: within normal limits Cervical ROM: within normal limits Mallampati: Class I Dentition: full Comments: Comments: braces History/ROS No significant history except as noted Neuropsych Anxiety and Depression Anesthetic Plan ASA status: 2 Anesthesia: General Other: h/o PONV? Medications/Allergies Home Medications Medication Instructions Recorded Confirmed Last Taken Type fluoxetine 40 mg capsule (Prozac) 40 mg PO DAILY 11/22/22 01/30/23 1 Day Ago History ~01/29/23 adapalene 0.3 % topical gel 1 applic topical DAILY #45 grams 11/23/22 01/30/23 1 Day Ago Rx ~01/29/23 imiquimod 5 % topical cream packet 1 applic topical ONCE #24 ea 01/25/23 01/30/23 1 Day Ago Rx ~01/29/23 Allergies Allergy/AdvReac Type Severity Reaction Status Date / Time No Known Allergies Allergy Verified 01/30/23 08:14 [facility] Anest[facility] Medical History Endometriosis 06/01/2015--> vaginal biopsy--endometriosis noted on pathology. Urolithiasis Surgical History H/O excision of mass (03/02/22) left chest wall History of laparoscopy (~2014) operative laparoscopy with upper vaginectomy and excision of rectovaginal endometriosis nodule. Procedure done on 09/20/[address] Manuel Osborn at [facility], rectal nodule removal by Dr. Mitul Vivar. This procedure was done for an area of vaginal endometriosis. Operative report has been reviewed and findings showed a normal uterus with normal tubes and ovaries. Extensive peritoneal endometriosis along the right abdomen. 3.5 cm rectovaginal nodule with deep infiltrating endometriosis. The cul-de-sac was not obliterated. Pathology of all the areas excised were confirmed to be endometriosis. History of local excision of skin lesion (~2004) Previous section Primary low transverse section. Performed by Dr. Gonzalo Rodriguez at [facility] in [place], [place]. Confirmed LTCS with 2 layer closure documented. S/P section 03/02/2021- repeat delivery, performed by Dr. Echevarria at [facility] Status post repeat low transverse section (~09/2019) 09/29/2019- per Dr. Echevarria at [facility] Status post repeat low transverse section (~02/2018) Primary low transverse section. Performed by Dr. Gonzalo Rodriguez at [facility] in [place], [place]. Confirmed LTCS with 2 layer closure documented. Family History Mother Diabetes Heart disease Grandmother Heart disease maternal Ovarian cancer maternal great grandmother Family/Other Patient denies medical problems Denies family history of: (hypertension, stroke, hypercholesterolemia, thryoid problems, breast cancer, cervical cancer, uterine cancer, colon cancer, or DVT/PE.) Father Hypertension Other Psychiatric illness Denies family history of Colon cancer Clotting disorder Hyperlipidemia Breast cancer Anesthesia complication Bleeding disorder Uterine cancer Thyroid condition Stroke Social History Substance/Drug Use: never Data Anesthesia 01/30/23 08:30 01/30/23 08:30 Short CBC 01/30/23 Range/Units 08:30 WBC 7.2 (4.0-10.0) 10^3/uL Hgb 12.7 (11.5-15.3) g/dL Hct 40.4 (37.0-47.0) % MCV 87.8 (81-99) fl Plt Count 267 (130-400) 10^3/cmm Neut % (Auto) 63.6 % Neut # (Auto) 4.59 (1.8-7.7) 10^3/uL BMP 01/30/23 08:30 Sodium 140 Potassium 4.3 Chloride 105 Carbon Dioxide 26 BUN 11 Creatinine 0.5 Glucose 81 Calcium 9.3 Liver Function 01/30/23 Range/Units 08:30 Total Bilirubin 0.3 (0.15-1.2) mg/dL AST 23 (0-32) U/L ALT 13 (0-33) U/L Alkaline Phosphatase 90 (35-105) U/L Albumin 4.7 (3.5-5.2) g/dL Urine 01/30/23 Range/Units 08:40 Urine Color Yellow (Yellow) Urine Appearance Clear (CLEAR) Urine pH 7 (5-7) Ur Specific [place] 1.015 (1.005-1.030) Urine Protein Neg (Negative) Urine Glucose (UA) Norm (Normal) Urine Ketones Negative (Negative) Urine Nitrate Negative (Negative) Urine Bilirubin Neg (Negative) Ur Leukocyte Esterase Negative (Negative) Blood Bank 01/30/23 08:30 Blood Type O Positive Rho(D) Type Positive Cardiac Studies: No Data to Display
[2023-01-31] VITALS (8 sets, daily range): BP systolic 91–127; BP diastolic 63–88; PULSE 71–123; RESP 16; TEMP 36.1–36.2; O2SAT 96–100
[2023-01-31] MEDS: sodium chloride 0.9% 1,000 ML 30 ML IV (08:54)
[2023-01-31] MEDS: scopolamine 1.5 Patch 1 PATCH TRANSDERMA (08:54)
[2023-01-31] MEDS: ondansetron 2 mg/ML SDV 2 mL 4 MG IVP (08:56)
--- NOTE | 2023-01-31 08:59 | P.ANESUD_ITS ---
Pre-Anesthetic Update Pre-Anesthetic Assessment: Date of Surgery/Procedure: 01/31/23 Preop Aileen gnosis: RYAN-2, ASC-H Proposed Procedure: Operation Date: 01/31/23 10:00 Proposed Procedures p Cervical cone biopsy 44902,N87.1(Not Applicable) - Rodrick Echevarria MD Any changes to Pre-Anesthetic Assessment?: No Last Intake: Intake Last Liquid Date 01/30/23 Last Liquid Time 19:30 Last Solid Date 01/30/23 Last Solid Time 19:30 Labs Last 48hrs: Short CBC 01/30/23 Range/Units 08:30 WBC 7.2 (4.0-10.0) 10^3/ uL Hgb 12.7 (11.5-15.3) g/dL Hct 40.4 (37.0-47.0) % MCV 87.8 (81-99) fl Plt Count 267 (130-400) 10^3/c mm Neut % (Auto) 63.6 % Neut # (Auto) 4.59 (1.8-7.7) 10^3/u L BMP 01/30/23 08:30 Sodium 140 Potassium 4.3 Chloride 105 Carbon Dioxide 26 BUN 11 Creatinine 0.5 Glucose 81 Calcium 9.3 Liver Function 01/30/23 Range/Units 08:30 Total Bilirubin 0.3 (0.15-1.2) mg/dL AST 23 (0-32) U/L ALT 13 (0-33) U/L Alkaline Phosphata se 90 (35-105) U/L Albumin 4.7 (3.5-5.2) g/dL Urine 01/30/23 Range/Units 08:40 Urine Color Yellow (Yellow) Urine Appearance Clear (CLEAR) Urine pH 7 (5-7) Ur Specific [place] y 1.015 (1.005-1.030) Urine Protein Neg (Negative) Urine Glucose (UA) Norm (Normal) Urine Ketones Negative (Negative) Urine Nitrate Negative (Negative) Urine Bilirubin Neg (Negative) Ur Leukocyte Deisi ase Negative (Negative) Blood Bank 01/30/23 08:30 Blood Type O Positive Rho(D) Type Positive Vitals: Temperature 97.2 F L 01/31/23 08:28 Temperature Source Temporal Artery S can 01/31/23 08:28 Pulse Rate 97 01/31/23 08:28 Respiratory Rate 16 01/31/23 08:28 Blood Pressure 127/88 01/31/23 08:28 Blood Pressure Darling n 101 01/31/23 08:28 Pulse Oximetry 97 01/31/23 08:28 Oxygen Delivery Me thod Room Air 01/31/23 08:41 Exam: Pre-Anes Outpt Exam: alert, oriented x 3, clear to auscultation bilaterally and regular rate & rhythm Cardiac Studies: No Data to Display
[2023-01-31] MEDS: sodium chloride 0.9% 500 ML IV (09:01)
[2023-01-31] MEDS: diphenhydrAMINE 50 mg/mL SDV 1mL 12.5 MG IVP (09:08)
--- NOTE | 2023-01-31 09:23 | W.PM.OPSUD ---
Surgery/Procedure H&P Update DATE OF PROCEDURE: January 31, 2023 DATE H&P PERFORMED: 02/07/22 H&P UPDATE INFORMATION: I have reviewed H&P completed within last 30 days, I have examined patient prior to procedure and No changes to prior documentation PREOP DIAGNOSIS: RYAN-2, ASC-H PLANNED PROCEDURE: Operation Date: 01/31/23 10:00 Proposed Procedures p Cervical cone biopsy 58699,N87.1(Not Applicable) - Rodrick Echevarria MD
[2023-01-31] MEDS: ceFAZolin 2,000 MG in sodium chloride 0.9% (plus) 50 ML 100 MG IV (09:40)
[2023-01-31] MEDS: lidocaine-epi 2% 20 mL INJ INJECTION (10:11)
--- NOTE | 2023-01-31 10:20 | SUR.OPER ---
1020 monsels solution applied to cervix per dr gonsalves ref [id number] [facility] [id number] 802/27
--- NOTE | 2023-01-31 10:32 | P.OP_ITS ---
Operative Report Date of procedure: January 31, 2023 Pre-op diagnosis: Preop Diagnosis RYAN-2, ASC-H Post-op diagnosis: same Procedure done: Cervical cone biopsy Specimens removed/disposition: Cone biopsy Surgeon: Rodrick Echevarria MD Estimated blood loss (mL): 25 IV fluids (mL): 600 Procedure: After informed consent, the patient was taken to the operating room where general anesthesia was administered without difficulty. After administration of general anesthesia, the patient was placed in the dorsal lithotomy position, and prepped and draped in the usual sterile fashion. A time-out procedure was performed. The patient was examined under anesthesia and found to have a normal uterus with normal adnexa. A weighted speculum was then placed in the patient's vagina and the anterior lip of the cervix grasped with the singed toothed tenaculum A uterine sound was then advanced into the cervix to determine its direction and length. The decending cervical branchs of the uterine arteries were ligated with 2-0 Vicryl bilaterally at the level of the internal os. Attention was then turned to the cervix where it was stain with Lugol?s solution to hightlight the lesion. The paracervical area was then circumferentially infiltrated using Lidocaine 1% with epinephrine. A Pharminox Cone Biopsy Excisor was used to cut the cone biopsy in circular fashion and following removal of the specimen a suture was placed at the 12 o?clock location and fixed in formaline. The Sturmdorf suture with 3-O Vycril was applied as Monsel solution. Bleeding was minimal. The patient tolerated the procedure well, sponge, lap and needle counts were correct times two She was taken to the recovery room in good condition.
[2023-01-31] MEDS: ibuprofen 800 mg tablet PO (11:24)
--- NOTE | 2023-01-31 14:57 | ANE.PACU2 ---
Inpatient post-anesthesia follow up: Airway intact: Yes Vital signs: Temperature 97 F Pulse Rate 89 Respiratory Rate 16 Blood Pressure 115/80 Pulse Oximetry 100 Oxygen Delivery Me thod Room Air Oxygen Flow Rate Fraction of Inspir ed Oxygen Hydration adequate: Yes Nausea and vomiting: No Pain level: 3 Mental status: Baseline
== END 2023-01-31 11:50 | disposition home or self-care (01) ==
PROVIDERS: PCP Family Medicine; Visit Provider Obstetrics & Gynecology
PROC: 0UB97ZZ Excision of Uterus, Via Natural or Artificial Opening (ICD-10-PCS; CPT 57520; principal; 2023-01-31 10:00)
DX: F32.A Depression, unspecified (principal); N87.1 Moderate cervical dysplasia; F41.9 Anxiety disorder, unspecified
CPT/HCPCS: 58558; 36592; 80053; 81003; 81025; 84703; 85025; 86850; 86900; 88307; J0690; J1100; J1200; J2250; J2405; J2704; J3010; J7030; J7040

== ENCOUNTER 2023-11-28 07:52 | Outpatient (CLI) | payer BC, MEDICAID, SELFPAY ==
--- NOTE | 2023-11-28 07:57 | CT_ITS ---
WS: [id number] CT ABDOMEN PELVIS TECHNIQUE: Noncontrast CT of the abdomen and contrast-enhanced CT of the abdomen and pelvis with bri nal and sagittal reformatted images. CLINICAL INFORMATION: R FLANK DISCOMFORT/HX OF NEPHROLITHIASIS COMPARISON: None. DLP: 1376.[address] scans at [facility] use at least one of these dose optimization techniques: automated e xposure control; mA and/or kV adjustment per patient size (includes targeted exams where dose is matc hed to clinical indication); or iterative reconstruction. FINDINGS: Prior hysterectomy. Diffuse fatty infiltration of the liver. Normal portal vein and splenic vein. Nor mal spleen. Small splenic cyst. Lung bases are well aerated. Tiny 4 mm nodule RIGHT lower lobe along the diaphragm. Subsegmental atelectasis RIGHT middle lobe. Normal pancreatic parenchymal enhancement. Normal GE junction. Adrenal glands are normal. Normal renal parenchymal enhancement. No hydronephros is. Small renal cysts. Normal caliber abdominal aorta. Normal sigmoid colon. A few diverticuli. No evidence of acute diverticulitis. Mild transverse colon c onstipation. No obstructing renal or ureteral calculi. Tiny nonobstructing RIGHT calyceal tip calculi. Normal empt beni on delayed images. IMPRESSION: 1. No obstructing renal or ureteral calculi. Normal emptying on the delayed images. 2. A few tiny RIGHT nonobstructing calyceal tip calculi. 3. Prior hysterectomy. 4. Few tiny bilateral renal cysts. 5. Mild diffuse fatty infiltration of the liver. 6. A few sigmoid diverticuli.
[2023-11-28] MEDS: iohexol 350 mg/mL 100 mL Btl IV (08:46)
== END 2023-11-28 07:53 | disposition home or self-care (01) ==
LOC: RAD 07:52
PROVIDERS: PCP Family Medicine; Visit Provider Nurse Practitioner Family
DX: N20.0 Calculus of kidney (principal); N28.1 Cyst of kidney, acquired; K76.0 Fatty (change of) liver, not elsewhere classified; K57.30 Diverticulosis of large intestine without perforation or abscess without bleeding; Z87.442 Personal history of urinary calculi
CPT/HCPCS: 74178; Q9967

== ENCOUNTER → 2024-06-10 10:03 | Outpatient (BNVA) | payer BC, MEDICAID, SELFPAY | PROVIDERS: PCP Family Medicine; Visit Provider Internal Medicine Rheumatology | DX: M19.90 Unspecified osteoarthritis, unspecified site (principal); Z79.899 Other long term (current) drug therapy; M45.6 Ankylosing spondylitis lumbar region; M53.3 Sacrococcygeal disorders, not elsewhere classified; G89.29 Other chronic pain; R10.2 Pelvic and perineal pain; R93.89 Abnormal findings on diagnostic imaging of other specified body structures | CPT/HCPCS: 36415; 72202; 85651; 86140; 86812 ==

== ENCOUNTER 2024-12-31 11:41 | Outpatient (CLI) | payer BC, MEDICAID, SELFPAY ==
--- NOTE | 2024-12-31 11:45 | MR_ITS ---
WS: [id number] MRI PELVIS WITHOUT CONTRAST. COMPARISON: SI joints 06/10/2024 Multiplanar, multisequence imaging is performed without contrast. Symmetric appearance of the SI joints. No bony sclerosis or edema. No erosions or fusion. Normal appearance of the sacrum. Sacral nerve roots are normal. No interruption of the exiting nerve roots within the sacral foramina. No soft tissue mass along the region of the sciatic nerve. No focal neuritis. Nondistended urinary bladder. No free fluid within the pelvis. Prior hysterectomy. MR/MR pelvis wo con* [id number] IMPRESSION: Negative MRI SI joints/pelvis. No osseous edema or erosions.
== END 2024-12-31 11:42 | disposition home or self-care (01) ==
PROVIDERS: PCP Family Medicine; Visit Provider Family Medicine
DX: G58.8 Other specified mononeuropathies (principal); Z90.710 Acquired absence of both cervix and uterus
CPT/HCPCS: 72195

== ENCOUNTER → 2025-04-23 16:11 | Outpatient (BNVA) | payer BC, MEDICAID, SELFPAY | PROVIDERS: PCP Family Medicine; Visit Provider Nurse Practitioner Women's Health | DX: Z00.00 Encounter for general adult medical examination without abnormal findings (principal); N13.30 Unspecified hydronephrosis | CPT/HCPCS: 87624 ==